=== PATIENT | male | born 1945 | race Caucasian/White ===

== ENCOUNTER 2017-11-11 12:30 | Day surgery (SDC) | payer MEDICARE, BC ==
[~2017-11-11] VITALS: Ht 180.3 cm; Wt 93.2 kg
[2017-11-11 13:20] VITALS: BP 126/68; PULSE 64; TEMP 98.6
[2017-11-11] MEDS ORDERED: RT ADVAIR 228 DISKUS IH (13:56)
[2017-11-11] MEDS ORDERED: PROVENTIL0.09 MG/A1 IH (13:57)
[2017-11-11] MEDS ORDERED: ATARAX 25MG25 MG/TAB PO (13:57)
[2017-11-11] MEDS ORDERED: MILLIPRED5 MG PO (13:58)
[2017-11-11] MEDS ORDERED: ACCOLATE10 MG PO (13:58)
[2017-11-11 16:57] VITALS: BP 125/73; PULSE 57; TEMP 97
[2017-11-11] MEDS ORDERED: ROXICODONE 55 MG/TAB PO (17:03)
[2017-11-11] MEDS ORDERED: COLACE 100100 MG/CAP PO (17:03)
[2017-11-11] MEDS ORDERED: TYLENOL 500MG500 MG PO (17:04)
[2017-11-11 17:15] VITALS: BP 120/57; PULSE 50
[2017-11-11 17:30] VITALS: BP 119/61; PULSE 54
== END 2017-11-11 18:05 | disposition home or self-care (01) ==
LOC: SDCO 12:30
DX: K40.90 Unilateral inguinal hernia, without obstruction or gangrene, not specified as recurrent (principal); K42.9 Umbilical hernia without obstruction or gangrene; J45.40 Moderate persistent asthma, uncomplicated; J33.9 Nasal polyp, unspecified; I10 Essential (primary) hypertension; E78.00 Pure hypercholesterolemia, unspecified
CPT/HCPCS: C1781; J0690; J1885; J2250; J2405; J2704; J3010; J7120